=== PATIENT | female | born 1970 | race Caucasian/White ===

== ENCOUNTER 2019-01-16 13:36 | Emergency (ER) | payer OTHER ==
[~2019-01-16] VITALS: Ht 160 cm; Wt 59.0 kg
--- NOTE | 2019-01-16 14:35 | PHYS DOC ---
Past History Past Medical History: Hypertension Past Surgical History: Other Alcohol Use: None Drug Use: None Adult General Chief Complaint Chief Complaint: FINGER INJURY HPI HPI 48-year-old female presents with left ring finger pain. The patient slammed her finger in a car door 7 days ago. When she opens or, her finger was turned 90 from normal. She assumed it could be broken. Her brother told her he couldn't fix it and straightened the finger back out. The patient heard a pop as it straightened. Afterwards, she did not have feeling from the PIP joint distally. She has been taping the finger and try to keep it straight since that time. She has had no return of sensation to that finger since the day of her. She is now concerned about nerve damage.She denies any other injuries or complaints. Review of Systems Review of Systems Constitutional: Denies fever or chills [] Eyes: Denies change in visual acuity, redness, or eye pain [] HENT: Denies nasal congestion or sore throat [] Respiratory: Denies cough or shortness of breath [] Cardiovascular: No additional information not addressed in HPI [] GI: Denies abdominal pain, nausea, vomiting, bloody stools or diarrhea [] : Denies dysuria or hematuria [] Musculoskeletal: Denies back pain or joint pain [] Integument: Denies rash or skin lesions [] Neurologic: Denies headache, focal weakness. loss of sensation L ring finger. [] Endocrine: Denies polyuria or polydipsia [] All other systems were reviewed and found to be within normal limits, except as documented in this note. Allergies Allergies Allergies Coded Allergies Type Severity Reaction Last Updated Verified acetaminophen Allergy Unknown 01/16/19 Yes propoxyphene Allergy Unknown 01/16/19 Yes Physical Exam Physical Exam Constitutional: Well developed, well nourished, no acute distress, non-toxic appearance. [] HENT: Normocephalic, atraumatic, bilateral external ears normal, oropharynx moist, no oral exudates, nose normal. [] Eyes: PERRLA, EOMI, conjunctiva normal, no discharge. [] Neck: Normal range of motion, no tenderness, supple, no stridor. [] Cardiovascular:Heart rate regular rhythm, no murmur [] Lungs & Thorax: Bilateral breath sounds clear to auscultation [] Abdomen: Bowel sounds normal, soft, no tenderness, no masses, no pulsatile masses. [] Skin: Warm, dry, no erythema, no rash. [] Back: No tenderness, no CVA tenderness. [] Extremities: Left ring finger swollen, unable to flex [] Neurologic: Alert and oriented X 3, normal motor function, no focal deficits noted. Loss of sensation past PIP joint L 4th digit[] Psychologic: Affect normal, judgement normal, mood normal. [] Current Patient Data Vital Signs Vital Signs Date Time Temp Pulse Resp B/P (MAP) Pulse Ox O2 Delivery O2 Flow Rate FiO2 01/16/19 13:50 98.1 96 16 97 Room Air EKG EKG [] Radiology/Procedures Radiology/Procedures [] Impressions: Examination: 3 views of the fourth digit COMPARISON: None available HISTORY: History of fourth digit injury Findings/ impression: There is mild displaced comminuted fracture of the middle phalanx of the ring finger. The alignment of the DIP, PIP joints grossly appears unremarkable. Electronically signed by: Skip Santoyo MD (01/16/2019 2:32 PM) [id number] DICTATED AND SIGNED BY: SKIP SANTOYO MD DATE: 01/16/19 1432 CC: MAME MORENO DO; PCP,NO ~ Course & Med Decision Making Course & Med Decision Making Pertinent Labs and Imaging studies reviewed. (See chart for details) The patient has a mildly displaced comminuted fracture of the left fourth digit. She does not appear to have sensation past the PIP joint. I have paged orthop edics. Dr. Mame Tamayo spoke with the transfer center and recommended that the patient be discharged. She is to call his office for an appointment on Saturday or Saturday of next week. We will provide this information to the patient. She is stable for discharge at this time. We'll discharge her on a short course of [place] for the part of the finger that still has pain. [] Dragon Disclaimer Dragon Disclaimer This electronic medical record was generated, in whole or in part, using a voice recognition dictation system. Departure Departure: Impression: Primary Impression: Fracture of phalanx of left ring finger Disposition: 01 HOME, SELF-CARE Condition: STABLE Referrals: PCP,NELSON (PCP) Patient Instructions: Finger Fracture, [id number] Additional Instructions: Please follow up with Dr. Mame Tamayo, hand surgeon at . You can call his office today for an appointment on Saturday or Saturday of next week. Phone number is [phone]. Scripts Hydrocodone Bit/Acetaminophen (NORCO 5-325 TABLET) 1 Each Tablet 1 TAB PO PRN Q6HRS PRN for PAIN, #10 TAB 0 Refills Prov: MAME MORENO DO 01/16/19 Problem Qualifiers Primary Impression: Fracture of phalanx of left ring finger Encounter type: initial encounter Fracture type: closed Phalanx: middle Fracture alignment: displaced Qualified Codes: S62.625A - Displaced fracture of middle phalanx of left ring finger, initial encounter for closed fracture MAME MORENO DO Jan 16, 2019 14:35
[2019-01-16] MEDS ORDERED: HYDR-3165 PO (15:03)
[2019-01-16 15:25] VITALS: BP 143/65
== END 2019-01-16 15:16 | disposition home or self-care (01) ==
LOC: ER 13:36
DX: S62.635A Displaced fracture of distal phalanx of left ring finger, initial encounter for closed fracture (principal); I10 Essential (primary) hypertension; Z88.6 Allergy status to analgesic agent; Z88.8 Allergy status to other drugs, medicaments and biological substances; W23.0XXA Caught, crushed, jammed, or pinched between moving objects, initial encounter; Y93.89 Activity, other specified; Y92.89 Other specified places as the place of occurrence of the external cause; Y99.8 Other external cause status
CPT/HCPCS: 73140; 99284

== ENCOUNTER 2019-03-29 10:46 | Emergency (ER) | payer OTHER ==
[~2019-03-29 10:46] MED LIST: HYDR-3165 PO
[2019-03-29 10:58] VITALS: BP 126/67
--- NOTE | 2019-03-29 11:43 | RAD ---
Three-view left hand radiographs 03/29/2019 CLINICAL HISTORY: Left thumb pain. PA, two lateral and an oblique digital radiographs of the left hand were obtained. No fracture or dislocation left hand is seen. Mild to moderate degenerative changes are seen throughout the interphalangeal joints of the left hand. Mild to moderate degenerative changes are seen involving the first MCP and first carpal metacarpal joints. Mild degenerative changes are seen involving the radiocarpal joint and midcarpal joint. IMPRESSION: Degenerative changes are seen involving the left hand and wrist as discussed above. No acute osseous abnormality is seen. Electronically signed by: oG Alfonso MD (03/29/2019 11:40 AM) [facility]
--- NOTE | 2019-03-29 12:42 | PHYS DOC ---
Past History Past Medical History: No Pertinent History Past Surgical History: Other Additional Past Surgical Histo: hernia; spine sx Alcohol Use: None Drug Use: None Adult General Chief Complaint Chief Complaint: FINGER INJURY HPI HPI Patient is a 49-year-old female presenting with thumb pain affected thumb she fell on it after drinking some alcohol last night no other injury. Allergies Allergies Allergies Coded Allergies Type Severity Reaction Last Updated Verified acetaminophen Allergy Unknown 01/16/19 Yes propoxyphene Allergy Unknown 01/16/19 Yes Physical Exam Physical Exam Constitutional: Well developed, well nourished, no acute distress, non-toxic appearance. [] HENT: Normocephalic, atraumatic, bilateral external ears normal, oropharynx moist, no oral exudates, nose normal. [] Eyes: PERRLA, EOMI, conjunctiva normal, no discharge. [] Neck: Normal range of motion, no tenderness, supple, no stridor. [] Extremities: Swelling and ecchymosis at the distal aspect of the left thumb there is a small subungual hematoma noted not drainable no snuffbox tenderness Neurologic: Alert and oriented X 3, normal motor function, normal sensory function, no focal deficits noted. [] Psychologic: Affect normal, judgement normal, mood normal. [] Current Patient Data Vital Signs Vital Signs Date Time Temp Pulse Resp B/P (MAP) Pulse Ox O2 Delivery O2 Flow Rate FiO2 03/29/19 10:58 98.0 86 18 97 Room Air Lab Results * pt presents c/o left thumb injury from falling last night. Distress * None Temperature (Fahrenheit): * 98.0 degrees F (97.6-99.5) Patient Temperature * 98.0 degrees F (97.5-99.5) Temperature Source * Oral Blood Pressure Systolic * 126 mm Hg (100-140) Blood Pressure Diastolic * 67 mm Hg (60-100) Blood Pressure Mean * 86 mm Hg Pulse Rate * 86 beats per minute (60-90) Respiratory Rate * 18 breaths per minute (12-24) Oxygen Delivery Method * Room Air Bedside Pulse Oximetry * 97 % Treatment Prior to Arrival * No Complaint of Pain * Yes Pain Assessment Label * Left * Pain Location Thumb * Pain Description Acute EKG EKG [] Radiology/Procedures Radiology/Procedures [] Impressions: PA, two lateral and an oblique digital radiographs of the left hand were obtained. No fracture or dislocation left hand is seen. Mild to moderate degenerative changes are seen throughout the interphalangeal joints of the left hand. Mild to moderate degenerative changes are seen involving the first MCP and first carpal metacarpal joints. Mild degenerative changes are seen involving the radiocarpal joint and midcarpal joint. IMPRESSION: Degenerative changes are seen involving the left hand and wrist as discussed above. No acute osseous abnormality is seen. Electronically signed by: Go Meza MD (03/29/2019 11:40 AM) [facility] DICTATED AND SIGNED BY: GO MEZA MD DATE: 03/29/19 1140 CC: JUAN LEE MD; PCP,NELSON ~ Course & Med Decision Making Course & Med Decision Making Pertinent Labs and Imaging studies reviewed. (See chart for details) []Thumb contusion x-rays negative reassurance provided Dragon Disclaimer Dragon Disclaimer This electronic medical record was generated, in whole or in part, using a voice recognition dictation system. Departure Departure: Impression: Primary Impression: Finger injury Disposition: HOME, SELF-CARE Condition: STABLE Referrals: PCPNELSON (PCP) JUAN LEE MD Mar 29, 2019 12:42
== END 2019-03-29 11:28 | disposition home or self-care (01) ==
LOC: ER 10:46
DX: S60.112A Contusion of left thumb with damage to nail, initial encounter (principal); Z88.6 Allergy status to analgesic agent; Z88.8 Allergy status to other drugs, medicaments and biological substances; W18.39XA Other fall on same level, initial encounter; Y93.89 Activity, other specified; Y92.89 Other specified places as the place of occurrence of the external cause; Y99.8 Other external cause status
CPT/HCPCS: 73130; 99284

== ENCOUNTER 2021-03-20 20:38 | Emergency (ER) | payer OTHER ==
[~2021-03-20] VITALS: Ht 160 cm; Wt 72.0 kg
--- NOTE | 2021-03-20 21:18 | PHYS DOC ---
Past History Past Medical History: No Pertinent History, Hypertension Past Surgical History: Hysterectomy, Other Additional Past Surgical Histo: spine sx, feet surgery. Alcohol Use: None Drug Use: None General Adult EDM: Chief Complaint: ANKLE PROBLEM HPI: HPI: ".. I worried .. I have a DVT.. " Patient is a 51 year old female who presents with above hx and complaints tenderness in right lower leg and right ankle edema.. Not typical area for formation of a DVT. No history of prior DVTs. No recent travel. No significant ill contacts. No history of recent travel Review of Systems: Review of Systems: Constitutional: Denies fever or chills Eyes: Denies change in visual acuity HENT: Denies nasal congestion or sore throat Respiratory: Denies cough or shortness of breath Cardiovascular: Denies chest pain or edema GI: Denies abdominal pain, nausea, vomiting, bloody stools or diarrhea : Denies dysuria Musculoskeletal: Denies back pain or joint pain. Complains of right leg tenderness Integument: Denies rash Neurologic: Denies headache, focal weakness or sensory changes Endocrine: Denies polyuria or polydipsia Lymphatic: Denies swollen glands Psychiatric: Denies depression or anxiety Family History: Family History: Noncontributory to presentation Current Medications: Current Meds: See nursing for home meds Allergies: Allergies: Allergies Coded Allergies Type Severity Reaction Last Updated Verified acetaminophen Allergy Unknown 01/16/19 Yes propoxyphene Allergy Unknown 01/16/19 Yes Physical Exam: PE: Constitutional: no acute distress, non-toxic appearance. [] HENT: Normocephalic, atraumatic, bilateral external ears normal, oropharynx moist, no oral exudates, nose normal. [] Eyes: PERRLA, EOMI, conjunctiva normal, no discharge. [] Neck: Normal range of motion, no tenderness, supple, no stridor. [] Cardiovascular:Heart rate regular rhythm, no murmur [] Lungs & Thorax: Bilateral breath sounds clear to auscultation [] Abdomen: Bowel sounds normal, soft, no tenderness, no masses, no pulsatile masses. [] Skin: Warm, dry, no erythema, no rash. [] Back: No tenderness, no CVA tenderness. [] Extremities: Left leg nontender tenderness, no cyanosis, no clubbing, ROM intact, right leg tenderness, small area of edema area of tenderness. No true cording. Neurologic: Alert and oriented X 3, normal motor function, normal sensory function, no focal deficits noted. [] Psychologic: Affect anxious, judgement normal, mood normal. [] Current Patient Data: Vital Signs: Vital Signs Date Time Temp Pulse Resp B/P (MAP) Pulse Ox O2 Delivery O2 Flow Rate FiO2 03/20/21 21:10 97.8 91 12 181/115 96 Room Air EKG: EKG: [] Radiology/Procedures: Radiology/Procedures: [] Heart Score: C/O Chest Pain: N/A Risk Factors: Risk Factors: DM, Current or recent (<one month) smoker, HTN, HLP, family history of CAD, obesity. Risk Scores: Score 0 - 3: 2.5% MACE over next 6 weeks - Discharge Home Score 4 - 6: 20.3% MACE over next 6 weeks - Admit for Clinical Observation Score 7 - 10: 72.7% MACE over next 6 weeks - Early Invasive Strategies Course & Med Decision Making: Course & Med Decision Making Pertinent Labs and Imaging studies reviewed. (See chart for details) Patient take a daily aspirin. Patient will start on Eliquis. Patient will follow up outpatient for ultrasound of area of questionable DVT outpatient in the morning. Patient will start on clonidine for hypertension. Reviewed with primary care. Modification meds will be needed. Review ED work-up with primary care and ultrasound findings outpatient with primary care. Return if any concerns. Impression: 1. Right lower leg and ankle edema 2. Right lower leg tenderness 3. Hypertension [] Dragon Disclaimer: Dragon Disclaimer: This electronic medical record was generated, in whole or in part, using a voice recognition dictation system. Departure Departure: Referrals: PCP,NO (PCP) Scripts Clonidine Hcl (CLONIDINE HCL) 0.2 Mg Tablet 0.2 MG PO WEEKLY for htn, #10 TAB Prov: MOISES BALLARD MD 03/20/21 Apixaban (ELIQUIS) 5 Mg Tablet 10 MG PO BID for dvt for 7 Days, #28 TAB Prov: MOISES BALLARD MD 03/20/21 Isabela Disclaimer This chart was dictated in whole or in part using Voice Recognition software in a busy, high-work load, and often noisy Emergency Department environment. It may contain unintended and wholly unrecognized errors or omissions. MOISES BALLARD MD Mar 20, 2021 21:18
[2021-03-20] MEDS ORDERED: APIXABAN 5 MG TABLET. PO STA (21:24)
[2021-03-20] MEDS ORDERED: cloNIDine TTS-2 1 PATCH PATCH TD ONE (21:30)
[2021-03-20] MEDS ORDERED: cloNIDine HCL 0.1 MG TABLET PO ONE (21:30)
[2021-03-20] MEDS ORDERED: APIX5TAB3 PO (21:51)
[2021-03-20] MEDS ORDERED: CLON-276 PO (21:57)
[2021-03-20 22:03] VITALS: BP 163/103
== END 2021-03-20 22:15 | disposition home or self-care (01) ==
LOC: ER 20:38
DX: M79.604 Pain in right leg (principal); R60.0 Localized edema; I10 Essential (primary) hypertension; Z88.8 Allergy status to other drugs, medicaments and biological substances
CPT/HCPCS: 99284

== ENCOUNTER → 2021-03-21 | Outpatient (CLI) | payer OTHER ==
[2021-03-20 22:03] VITALS: BP 163/103
[~2021-03-21] MED LIST changes: +APIX5TAB3 PO; +CLON-276 PO
--- NOTE | 2021-03-21 11:08 | RAD ---
Exam: US DPLX VENOUS EXTREMITY LOWER RT Indication: RLE SWELLING Technique: Color-flow and pulsed wave duplex ultrasound with compression of venous structures of th e right lower extremity. Comparison: None Available. Findings: Duplex ultrasound with compression of the deep venous structures of the right lower extremi ty from the common femoral vein through the popliteal vein is negative for DVT. The posterior tibial and peroneal veins are segmentally visualized and patent where seen. Normal venous waveforms and augm entation are noted throughout. Impression: No evidence for DVT in the right lower extremity. Electronically signed by: Miguelangel Mary MD (03/21/2021 11:05 AM) [id number]
== END ==
LOC: US 10:32
PROVIDERS: ATTEND Emergency Medicine
DX: I87.1 Compression of vein (principal); M79.89 Other specified soft tissue disorders
CPT/HCPCS: 93971

== ENCOUNTER → 2021-05-18 | Outpatient (CLI) | payer OTHER ==
--- NOTE | 2021-05-18 09:31 | RAD ---
EXAM: Abdomen sonogram. HISTORY: Elevated liver function laboratory values. TECHNIQUE: Sonographic imaging of the abdomen was performed. COMPARISON: None. FINDINGS: The liver is upper normal in size. There is hepatic steatosis. No focal hepatic lesion is s een. The common bile duct is normal in caliber. The gallbladder is distended, likely due to the prepr andial status the patient. There is no cholecystitis or cholelithiasis. The right kidney is unremarka ble. There is a heterogeneous hypoechoic pancreas. No focal pancreatic lesion is seen. The inferior v laura cava is patent. IMPRESSION: 1. Hepatic steatosis and upper normal liver size. 2. Heterogeneous hypoechoic pancreatic parenchyma. Correlate with pancreatic laboratory values to exc lude pancreatitis. No focal pancreatic lesion is seen sonographically. Electronically signed by: Glenna Oakes MD (05/18/2021 9:29 AM) [id number]
== END ==
LOC: US 08:40
PROVIDERS: ATTEND Internal Medicine
DX: K76.0 Fatty (change of) liver, not elsewhere classified (principal); K82.8 Other specified diseases of gallbladder; R74.01 Elevation of levels of liver transaminase levels
CPT/HCPCS: 76705